=== PATIENT | male | born 1950 | race Caucasian/White ===

== ENCOUNTER 2025-05-07 15:28 | Emergency (ER) | payer MEDICARE, BC ==
[~2025-05-07] VITALS: Ht 175.3 cm; Wt 104.7 kg
[2025-05-07 18:34] VITALS: BP 149/63; TEMP 97.6; O2SAT 98
== END 2025-05-07 18:40 | disposition home or self-care (01) ==
LOC: M ED 15:28
DX: T18.9XXA Foreign body of alimentary tract, part unspecified, initial encounter (principal); I10 Essential (primary) hypertension; E78.5 Hyperlipidemia, unspecified; N40.0 Benign prostatic hyperplasia without lower urinary tract symptoms; F10.10 Alcohol abuse, uncomplicated; Z91.030 Bee allergy status; Z88.8 Allergy status to other drugs, medicaments and biological substances